=== PATIENT | male | born 2000 | race Caucasian/White ===

== ENCOUNTER 2024-08-14 06:39 | Inpatient (IN) | payer OTHER ==
[2024-08-14 07:36] LABS: #Basophils Less than 0.03 10x3/uL (0.0-0.2); %Basophils 0.2 % (0.0-1.0); %Eosinophils 0.3 % (0.0-10.0); %Lymphocytes 10.4 % (21.0-51.0); %Monocytes 10.2 % (0.0-10.0); %Neutrophils 78.6 % (42.0-75.0); Hematocrit 39.1 % (42.0-52.0); Hemoglobin 13.8 g/dL (14.0-18.0); Mean Corpuscular HGB CONC 35.3 g/dL (32.0-36.0); Mean Corpuscular Hemoglobin 30.6 pg (27.0-31.0); Mean Corpuscular Volume 86.7 fL (78.0-98.0); Mean Platelet Volume 9.1 fL (7.4-10.4); Platelet Count 165 10x3/uL (130-400); RBC Distribution Width 12.7 % (11.5-14.5); Red Blood Cell (RBC) Count 4.51 mill/uL (4.70-6.10)
[2024-08-14] MEDS ORDERED: Ondansetron PF 4 MG/2 ML Vial ONE (07:40)
[2024-08-14] MEDS ORDERED: Ketorolac Tromethamine 30 MG (1 mL) VIAL ONE (07:40)
[2024-08-14 07:51] LABS: ALT (SGPT) 45 U/L (8-55); AST (SGOT) 33 U/L (5-34); Alkaline Phosphatase 53 U/L (40-110); Anion Gap 15 mmol/L (10-20); BUN (Urea Nitrogen) 12 mg/dL (8.9-20.6); Bilirubin, Total 1.7 mg/dL (0.2-1.2); Calc. Creatinine Clearance 0 mL/min (70-130); Calcium 8.8 mg/dL (7.8-10.44); Carbon Dioxide 23 mmol/L (22-29); Chloride 105 mmol/L (98-107); Estimated GFR 96; Globulin 2.6 g/dL (2.4-3.5); Glucose 139 mg/dL (70-105); Protein, Total 6.6 g/dL (6.0-8.3); Sodium 139 mmol/L (136-145)
[2024-08-14 07:59] LABS: Troponin I 4.651 ng/mL (< 0.028)
[2024-08-14] MEDS ORDERED: Aspirin Chewable 81 MG TAB ONE (09:00)
[2024-08-14 10:45] LABS: Troponin I 12.328 ng/mL (< 0.028)
[2024-08-14 10:51] VITALS: BMI 27.7
[2024-08-14] MEDS ORDERED: Ondansetron ORAL SOLN. 4 MG/5 ML UDCUP PO PRN (10:59)
[2024-08-14] MEDS ORDERED: Ondansetron PF 4 MG/2 ML Vial IVP PRN (10:59)
[2024-08-14] MEDS ORDERED: Ondansetron ODT 4 MG TAB PO PRN (11:05)
[2024-08-14 11:34] LABS: Amphetamine Not Detected (NotDetected); Barbiturates Screen Not Detected (NotDetected); Benzodiazepine Screen Not Detected (NotDetected); Cocaine Metabolite Screen Not Detected (NotDetected); Methadone Not Detected (NotDetected); Methamphetamine Not Detected (NotDetected); Opiate Screen Not Detected (NotDetected); Oxycodone Screen Not Detected (NotDetected); Phencyclidine (PCP) Not Detected (NotDetected); THC/Cannabinoid Screen Not Detected (NotDetected); Tricyclic Screen Not Detected (NotDetected)
[2024-08-14 12:12] LABS: HIV (1/2) Antibody/Antigen NONREACTIVE (NonReactive); HIV 1/2 INDEX 0.05 S/CO (<1.00); Hep C IgG Ab NONREACTIVE S/CO (NonReactive); Hep C Index 0.08 S/CO (0-0.79)
[2024-08-14 14:25] LABS: Critical Call Chem Troponin I RESULT DECREASING; Troponin I 7.831 ng/mL (< 0.028)
[2024-08-14 15:05] LABS: Hemoglobin A1c 4.3 % (4.0-6.0)
[2024-08-14] MEDS ORDERED: Ibuprofen 800 MG TAB ONE (15:15)
[2024-08-14] MEDS: Ibuprofen 800 MG TAB PO SCH (17:13)
[2024-08-14] MEDS: Acetaminophen 325 MG TAB PO PRN (17:13)
[2024-08-14] MEDS: HYDROcodone/Acetaminophen 5/325 mg Tablet PO PRN (17:35)
[2024-08-14] MEDS: FLU (Fluarix Triv) TS24-25(6MOS UP)/PF 45 MCG/0.5 ML Syringe IM ONE (17:44)
[2024-08-14] MEDS: Colchicine 0.6 MG TAB PO SCH (22:00)
[2024-08-15 05:10] LABS: #Basophils Less than 0.03 10x3/uL (0.0-0.2); %Basophils 0.1 % (0.0-1.0); %Eosinophils 1.1 % (0.0-10.0); %Lymphocytes 17.2 % (21.0-51.0); %Monocytes 11.3 % (0.0-10.0); Hematocrit 36.6 % (42.0-52.0); Hemoglobin 13.2 g/dL (14.0-18.0); Mean Corpuscular HGB CONC 36.1 g/dL (32.0-36.0); Mean Corpuscular Hemoglobin 30.6 pg (27.0-31.0); Mean Corpuscular Volume 84.9 fL (78.0-98.0); Mean Platelet Volume 9.2 fL (7.4-10.4); Platelet Count 136 10x3/uL (130-400); RBC Distribution Width 12.8 % (11.5-14.5); Red Blood Cell (RBC) Count 4.31 mill/uL (4.70-6.10)
[2024-08-15 05:29] LABS: ALT (SGPT) 48 U/L (8-55); AST (SGOT) 96 U/L (5-34); Albumin 3.7 g/dL (3.5-5.0); Alkaline Phosphatase 51 U/L (40-110); Anion Gap 12 mmol/L (10-20); BUN (Urea Nitrogen) 13 mg/dL (8.9-20.6); Bilirubin, Total 0.9 mg/dL (0.2-1.2); Calc. Creatinine Clearance 157 mL/min (70-130); Calcium 8.7 mg/dL (7.8-10.44); Carbon Dioxide 24 mmol/L (22-29); Chloride 107 mmol/L (98-107); Estimated GFR 124; Globulin 2.6 g/dL (2.4-3.5); Glucose 98 mg/dL (70-105); Protein, Total 6.3 g/dL (6.0-8.3); Sodium 139 mmol/L (136-145)
[2024-08-15] MEDS: Pantoprazole DR 40 MG TAB PO SCH (09:30)
[2024-08-15 17:52] VITALS: BP 122/64; TEMP 97.9
[2024-08-19 11:19] LABS: ANA Symphony (Qualitative) Negative (Negative); ANA Symphony (Quantitative) 0.2 Ratio (< 0.7 Negative); dsDNA IgG Antibody 6.2 IU/mL (<10 Negative)
== END 2024-08-15 17:45 | disposition home or self-care (01) | DRG 316 ==
LOC: ERS 06:39 → ERHOLD 09:43 → OBSVTOIN 10:57 → 2NO 17:14
PROVIDERS: ADMIT Family Medicine; ATTEND Family Medicine
DX: I30.1 Infective pericarditis (principal); R77.8 Other specified abnormalities of plasma proteins; B97.89 Other viral agents as the cause of diseases classified elsewhere; F90.9 Attention-deficit hyperactivity disorder, unspecified type; Z98.890 Other specified postprocedural states; Z82.49 Family history of ischemic heart disease and other diseases of the circulatory system; Z79.899 Other long term (current) drug therapy
CPT/HCPCS: 36415; 71045; 80053; 80306; 83036; 83880; 84484; 85025; 86038; 86225; 86803; 87389; 87428; 93005; 93306; 96374; 96375; G0378; J1885; J2405